=== PATIENT | female | born 1965 | race Caucasian/White ===

== ENCOUNTER 2016-09-01 22:58 | Emergency (ER) | payer OTHER ==
--- NOTE | 2016-09-01 23:08 | EDPHY ---
H & P Stated Complaint: hyperventilating, can't speak Time Seen by Provider: 09/01/16 23:08 HPI/ROS: HPI The patient presents with dizziness which began at about 11:00 p.m. which is a feeling of lightheadedness. Her symptoms came on slowly and got progressively worse over the course of minutes. She said her whole face felt numb, it was difficult to speak and hard to move her entire body. She was feeling quite anxious. According to her who was with her he said she seemed agitated and was hyperventilating, her whole body was tense. Her symptoms lasted for about 30 minutes and then resolved on their own. In triage she was noted to be hyperventilating. Earlier in the day, her son was making marijuana edibles on a tray that she may cookies on. She ate cookies at approximately 10:00 p.m. she has been stressed over the last 2 days with some work related stressors . REVIEW OF SYSTEMS Constitutional: No fever, no chills. Eyes: No discharge. ENT: No sore throat. Cardiovascular: No chest pain, no palpitations. Respiratory: No cough, no shortness of breath. Gastrointestinal: No abdominal pain, no vomiting. Genitourinary: No hematuria. Musculoskeletal: No back pain. Skin: No rashes. Neurological: No headache. PMHx: Healthy, no diabetes, no hypertension Soc Hx: 2 classes of wine tonight PHYSICAL General Appearance: Alert, no distress Eyes: Pupils equal and round no pallor or injection ENT, Mouth: Mucous membranes moist Respiratory: There are no retractions, lungs are clear to auscultation Cardiovascular: Regular rate and rhythm Gastrointestinal: Abdomen is soft and non-tender, no masses, bowel sounds normal Neurological: Alert and oriented x3, cranial nerves 2-12 intact, 5/5 strength in upper and lower extremities which is symmetric, normal finger to nose and heel to lovell testing, normal gait, speech is fluid, normal recall Skin: Warm and dry, no rashes Musculoskeletal: Neck is supple non tender Extremities: symmetrical, full range of motion Psychiatric: Patient is oriented X 3, there is no agitation Source: Patient, Family Exam Limitations: No limitations - Personal History LMP (Females 10-55): Post Menopausal Current Tetanus/Diphtheria Vaccine: Yes Current Tetanus Diphtheria and Acellular Pertussis (TDAP): Yes - Medical/Surgical History Hx Asthma: No Hx Chronic Respiratory Disease: No Hx Diabetes: No Hx Cardiac Disease: No Hx Renal Disease: No Hx Alcoholism: No Other PMH: denies - Social History Smoking Status: Never smoked Constitutional: Initial Vital Signs Heart Rate 113 H 09/01/16 23:00 Respiratory Rate 60 H 09/01/16 23:00 Blood Pressure 117/96 H 09/01/16 23:00 O2 Sat (%) 96 09/01/16 23:00 O2 Delivery Mode Room Air Allergies/Adverse Reactions: ciprofloxacin Allergy (Verified 09/01/16 23:00) Home Medications: Medication Instructions Recorded NK [No Known Home Meds] 09/01/16 Medical Decision Making - Diagnostics EKG Interpretation: EKG: Complete interpretation has been separately recorded in the [facility] archive. Summary impression: Normal sinus rhythm Differential Diagnosis: This is a healthy 51-year-old female who presents with acute onset of dizziness associated with facial numbness hyperventilation, difficulty speaking, tensing of her muscles, witnessed by her earlier this evening. This episode lasted for about 30 minutes and resolved on its own. On arrival, she was hyperventilating and uncomfortable appearing. Despite this, NIH stroke score was 0. Her symptoms quickly resolved in the emergency room. She then found out that she was eating cookies from a tray that her son had made marijuana edibles on earlier. She says she is known to be very sensitive to marijuana and does not use it for this reason. Her symptoms are consistent with prior exposures to marijuana. She is feeling a bit more stress in her life. In the emergency room EKG was obtained and was normal. I offered her further testing such as basic labs as well as anxiolysis, however she declines. I reassessed her and her symptoms were improving. She would like to go home. She will be discharged. Differential diagnosis considered includes marijuana intoxication, CVA, TIA, anxiety attack. Departure - Departure Disposition: Home, Routine, Self-Care Clinical Impression: Dizziness Condition: Good Instructions: Dizziness (ED) Additional Instructions: This symptoms you're having tonight do not appear to be caused by a stroke. They could be related to consuming marijuana. Please monitor your symptoms at home and if your feeling worse in any way you can return to the emergency room for recheck. Otherwise please follow-up with your doctor in the next few days. Referrals: MD SOLOMON [Other] - As per Instructions
[2016-09-01 23:23] VITALS: PULSE 87; TEMP 97.7
--- NOTE | 2016-09-01 23:43 | CPEKG ---
Heart Rate: 82 RR Interval: 732 P-R Interval: 160 QRSD Interval: 96 QT Interval: 404 QTC Interval: 472 P Haver[place]: 53 QRS Haverford: -5 T Wave [place]: 23 EKG Severity - NORMAL ECG - EKG Impression: SINUS RHYTHM Electronically Signed By: Jing Camargo 02-Sep-2016 07:03:21
[2016-09-02 00:12] VITALS: BP 115/81; RESP 18; O2SAT 95
== END 2016-09-02 00:12 | disposition home or self-care (01) ==
DX: R42 Dizziness and giddiness (principal)

== ENCOUNTER 2018-04-29 10:45 | Observation (INO) | payer OTHER ==
[2018-04-29] MEDS ORDERED: OXYCODONE/APAP 5/325 TAB PO ONE (11:01)
[2018-04-29] MEDS ORDERED: HYDROmorphONE/DILAUDID 2 MG/ML INJ IVP ONE ×3 (11:46→14:04)
--- NOTE | 2018-04-29 12:03 | EDPHY ---
H & P Smoking Status: Never smoked Time Seen by Provider: 04/29/18 10:58 HPI/ROS: CLINICAL IMPRESSION: Closed, displaced, comminuted, foreshortened right distal radial metaphyseal fracture ASSESSMENT/PLAN: 52-year-old female presents to the emergency department with acute right wrist pain after ground level fall earlier today. Patient is neurovascular intact, no open wounds, no proximal joint injury. She is right-hand dominant. X-rays show a closed, comminuted, significantly displaced foreshortened right distal radial metaphyseal fracture. Patient agreed to IV analgesics but refused hematoma block. She informed us that she is [facility]. After lengthy discussions with [facility] and [facility] both between myself and the ED attending, patient ultimately refused to be transferred to [facility] per [facility] recommendation and requests having surgery here. She refused hematoma block and reduction in ER. I spoke with Dr. Nix who agrees to take the patient to the operating room later on this evening. Patient was kept NPO, received a L fluid and preoperative lab work. She also refused a forearm sugar- tong splint. She remains neurovascularly intact on repeat exams. Seen examined by Dr. Prescott as well. Stabilized in the ED prior to transfer to floor and ultimately operating room with Dr. Nix. DIFFERENTIAL DX: Differential includes but not limited to acute fracture, dislocation, ligamentous injury, neurovascular compromise ED PROCEDURES: Procedure: Splint placement. A forearm sugar-tong splint was recommended by ortho but patient refused. ED COURSE: 12:40 p.m.: Case discussed with Dr. Nix who reviewed films. He would recommend surgery for this patient later this evening. She has been NPO since 0930 this morning. Patient advises me that she is [facility]. I spoke with [facility]. He will speak to [facility] to inquire if patient should be transferred. He will call back. 1:00pm: Radiologic images sent to rinku Ambrosio. He will discuss with his ortho attending 1:40 p.m.: Images reviewed with Scotty Ambrosio. He and his attending does not feel the patient require surgical intervention. He reviewed x-rays with his orthopedic attending. He has requested the patient have reduction in our ED and be seen as an outpatient. Discussed with Dr. Prescott who will speak to [facility]. Patient is requesting surgery sooner. She does not wish to leave this hospital. 2:08: Still awaiting [facility] call back for Dr. Prescott. Per Dr. Prescott, patient was placed in forearm sugartong splint and will discuss with Scotty. 2:20: Dr. Prescott discussing with Scotty now. Scotty asking to speak to the patient. They are recommending that she be transferred to [facility] for reduction in the emergency department there. Fajardo spoke with the patient in the room and. Patient has refused transfer to [facility]. She prefers to stay here. Forearm sugar-tong splint placed. Patient admitted to Dr. Nix service with plan for operating room around 1700. 2:50 p.m.. Patient updated on plan. She is refusing splint due to her concern over pain. I did offer additional IV analgesics but she continues to refuse. CHIEF COMPLAINT: Right wrist pain HPI: 52-year-old [id number] female presents to the emergency department with acute right wrist pain after she tripped and fell landing on an outstretched arm. Patient is writhing in pain, reports that she cannot move her hand or fingers because of pain but reports no numbness or loss of sensation PAST MEDICAL HISTORY: GERD Pertinent Past Surgical History: None reported Social History: Nonsmoker, NPO since 01/29 this morning. REVIEW OF SYSTEMS: All other systems negative Constitutional: No fever, no chills Musculoskeletal: No deformity, + joint pain Skin: No rashes, color change or open wounds. Neurological: No sensory loss or weakness. PHYSICAL EXAM: General Appearance: Alert, oriented, appropriate for age, cooperative, NAD, well hydrated, non-toxic appearing, VSS, no hypoxia. Neurological: Alert and oriented x 3, normal sensation and strength of extremities Skin: Warm, dry, no rashes, no nodules on palpation. Musculoskeletal: Obvious deformity to right wrist. Closed, no open laceration. Strong radial pulse. Unable to move thumb and fingers due to pain. No palpable forearm or elbow pain. Unable to assess range of motion of the wrist. MEDICAL DECISION MAKING: Patient was seen independently. Secondary supervising physician at time of evaluation was Dr. Prescott. Diagnosis: Closed right, comminuted, displaced, foreshortened distal radius fracture . New, requires workup Summary: See assessment and plan for summary of ED visit Independent visualization of images, tracing, or specimens yes. Decision to obtain medical records or history from someone other than the patient: Patient's Review / Summarize previous medical records: None available Discussed patient with another provider: Dr. Prescott, Dr. Nix, Dr. Levy, [facility], Kirt Ambrosio from [facility]. Patient Progress: Stable . (Zach Dickson) Constitutional: Initial Vital Signs Temperature (C) 36.3 C 04/29/18 10:54 Heart Rate 79 04/29/18 10:54 Respiratory Rate 18 04/29/18 10:54 Blood Pressure 119/89 H 04/29/18 10:54 O2 Sat (%) 95 04/29/18 10:54 O2 Delivery Mode Nasal Cannula O2 (L/minute) 2 Allergies/Adverse Reactions: ciprofloxacin Allergy (Verified 04/29/18 10:54) Home Medications: Medication Instructions Recorded Ranitidine HCl 04/29/18 MDM/Departure - MDM Imaging Results: Imaging Impressions Wrist X-Ray 04/29/18 10:53 Impression: Comminuted, displaced, angulated and foreshortened fracture of the distal radial metaphysis. There is also an ulnar styloid fracture. Medications Given: Discontinued Medications Hydromorphone HCl (Dilaudid) 0.5 mg IVP EDNOW ONE Stop: 04/29/18 11:47 Last Admin: 04/29/18 12:07 Dose: 0.5 mg Hydromorphone HCl (Dilaudid) 0.5 mg IVP EDNOW ONE Stop: 04/29/18 12:39 Last Admin: 04/29/18 13:00 Dose: 0.5 mg Hydromorphone HCl (Dilaudid) 0.5 mg IVP EDNOW ONE Stop: 04/29/18 14:05 Last Admin: 04/29/18 14:10 Dose: 0.5 mg Sodium Chloride (Ns) 1,000 mls @ 0 mls/hr IV EDNOW ONE; Wide Open PRN Reason: Protocol Stop: 04/29/18 15:12 Last Admin: 04/29/18 15:13 Dose: 1,000 mls Ondansetron HCl (Zofran) 4 mg IVP EDNOW ONE Stop: 04/29/18 12:39 Last Admin: 04/29/18 12:54 Dose: 4 mg Ondansetron HCl (Zofran) 4 mg IVP EDNOW ONE Stop: 04/29/18 14:55 Last Admin: 04/29/18 14:56 Dose: 4 mg Oxycodone/Acetaminophen (Percocet 5/325) 2 tab PO EDNOW ONE Stop: 04/29/18 11:02 Last Admin: 04/29/18 11:03 Dose: 2 tab ED Course/Re-evaluation: I evaluated this patient. She has an acute distal radius fracture with significant displacement. Patient has refused hematoma block and Dr. Nix feels that the patient requires definitive management in the OR and plans to take her in a couple hours. [facility] was contacted as this is her primary insurance, and they essentially disagreed with this plan, requesting that we instead reduce the fracture under conscious sedation here and refer her to them for surgery. I explained that the patient does not want to undergo this plan, and that our specialist does not feel this is best. Ultimately, the [facility] doc spoke to the patient directly and offered to transfer the patient to [facility] ED for reduction under conscious sedation, but she declined. They discussed with her the fact that this option may result in additional cost to her. (Arthur Prescott) - Depart Condition: Good
[2018-04-29] MEDS ORDERED: ONDANSETRON 4 MG/2 ML VIAL IVP ONE ×2 (12:38→14:54)
[2018-04-29] MEDS ORDERED: ONDANSETRON 4 MG/2 ML VIAL ONE ×2 (14:53→17:42)
[2018-04-29 15:09] LABS: PLATELET COUNT 235 10^3/uL (150-400)
[2018-04-29] MEDS ORDERED: NS 1,000 ML IV ONE (15:11)
[2018-04-29] MEDS ORDERED: BUPIVACAINE 0.5% 30 ML SDV ONE (16:40)
--- NOTE | 2018-04-29 17:00 | GHP ---
DATE OF ADMISSION: 04/29/2018 CHIEF COMPLAINT: Right wrist pain. HISTORY OF PRESENT ILLNESS: Patient is a 52-year-old, wjmzy-odyi-hrfgtyjk woman who sustained a fall landing on her right outstretched arm. She noted immediate pain and deformity. She denies any prev ious problems or injuries relative to her right wrist. PAST MEDICAL HISTORY: Unremarkable. She takes no medicines and lists allergy to ciprofloxacin. SOCIAL HISTORY: Negative for tobacco use. PHYSICAL EXAMINATION: GENERAL: She is alert and oriented x3, in moderate distress secondary to her right wrist pain. HEENT: Head is normocephalic. Pupils equal, round, reactive to light. Extraocul ar eye movements intact. NECK: Supple. No JVD, lymphadenopathy. CHEST: Clear to auscultation. H EART: Regular rate and rhythm. No murmurs or gallops. ABDOMEN: Soft, nontender, nondistended. GE NITAL, RECTAL, AND BREAST: Deferred. EXTREMITIES: Exam reveals swelling in the right wrist with an apex volar deformity. Her distal neurovascular exam is grossly intact. There is no sign of compart ment syndrome (traumatic carpal tunnel). IMAGING: AP and lateral radiographs of the wrist show evidence of a dorsally displaced apex volar an gulated distal radius fracture with possible intra-articular extension. ASSESSMENT: Right distal radius fracture. PLAN: Based on the nature of her injury, it was recommended that operative treatment consisting of o pen reduction, internal fixation be pursued. /[id number]/MODL
[2018-04-29] MEDS ORDERED: CEFAZOLIN 2 GM/DEXTROSE/100 ML BAG IV ONE (17:15)
[2018-04-29] MEDS ORDERED: MIDAZOLAM 2 MG/2 ML VIAL ONE (17:29)
[2018-04-29] MEDS ORDERED: ceFAZolin 2 GM/DEXTROSE 100 ML IV ONE (17:30)
[2018-04-29] MEDS ORDERED: fentaNYL 100 MCG/2 ML INJ ONE (17:31)
[2018-04-29] MEDS ORDERED: PROPOFOL 200 MG/20 ML VIAL ONE (17:32)
[2018-04-29] MEDS ORDERED: LIDOCAINE 2% 5 ML SDV ONE (17:32)
[2018-04-29] MEDS ORDERED: DEXAMETHASONE 4 MG/ML VIAL ONE (17:42)
[2018-04-29] MEDS ORDERED: RANITIDINE 50 MG/2 ML VIAL ONE (17:42)
[2018-04-29] MEDS ORDERED: PROMETHAZINE HCL 25 MG/ML INJ IVP PRN ×2 (17:57→21:03)
[2018-04-29] MEDS ORDERED: oxyCODONE IR 5 MG TAB PO PRN (17:57)
[2018-04-29] MEDS ORDERED: ONDANSETRON 4 MG/2 ML VIAL IVP PRN ×2 (17:57→21:03)
[2018-04-29] MEDS ORDERED: NALOXONE HCL 0.4 MG/ML INJ IVP PRN (17:57)
[2018-04-29] MEDS ORDERED: MIDAZOLAM 2 MG/2 ML VIAL IVP ONE (17:57)
[2018-04-29] MEDS ORDERED: fentaNYL 100 MCG/2 ML INJ IVP PRN (17:57)
[2018-04-29] MEDS ORDERED: ALBUTEROL 3 ML DEYVIAL IH PRN (17:57)
--- NOTE | 2018-04-29 17:59 | PDANEPAE ---
ANE History of Present Illness R Radius ORIF ANE Past Medical History - Cardiovascular History Hx Hypertension: No Hx Arrhythmias: No - Pulmonary History Hx COPD: No Hx Asthma/Reactive Airway Disease: No Hx Oxygen in Use at Home: No Hx Sleep Apnea: No - Endocrine History Hx Diabetes: No ANE Review of Systems Review of Systems: ANE Patient History - Allergies Allergies/Adverse Reactions: ciprofloxacin Allergy (Verified 04/29/18 10:54) - Home Medications Home Medications: Multivitamins [Multivitamin (*)] 1 each PO DAILY 04/29/18 [Last Taken 04/29/18] Ranitidine HCl [Zantac] 150 mg PO DAILY 04/29/18 [Last Taken 04/29/18] guaiFENesin [Mucinex 600 MG (*)] 600 mg PO BID PRN 04/29/18 [Last Taken Unknown] - NPO status NPO Since - Liquids (Date): 04/29/18 NPO Since - Liquids (Time): 11:00 NPO Since - Solids (Date): 04/28/18 NPO Since - Solids (Time): 19:00 - Smoking Hx Smoking Status: Never smoked ANE Labs/Vital Signs - Labs Result Diagrams: 04/29/18 14:50 04/29/18 14:50 - Vital Signs Blood Pressure: 98/60 Heart Rate: 62 Respiratory Rate: 16 O2 Sat (%): 99 Height: 167.64 cm Weight: 65.771 kg ANE Physical Exam - Airway Neck exam: FROM Mallampati Score: Class 2 Mouth exam: normal dental/mouth exam - Pulmonary Pulmonary: clear to auscultation - Cardiovascular Cardiovascular: regular rate and rhythym - ASA Status ASA Status: II ANE Anesthesia Plan Anesthesia Plan: GA w LMA
--- NOTE | 2018-04-29 18:43 | POSTANESTH ---
Post Anesthetic Evaluation Cardiovascular Status: Normal, Stable Respiratory Status: Normal, Stable Level of Consciousness/Mental Status: Mildly Sleepy, Arousable Pain Control: Adequate, Prn Tx Ordered Nausea/Vomiting Control: Adequate, Prn Tx Ordered Complications Possibly Related to Anesthesia: None Noted
--- NOTE | 2018-04-29 18:46 | POSTOPPROG ---
Post Op Note Date of Operation: 04/29/18 Surgeon: Chris Nix Anesthesia: LMA Pre-op Diagnosis: R Distal radius fx Post-op Diagnosis: same Procedure: ORIF R dist radius fx Inf/Abcess present in the surg proc area at time of surgery?: No EBL: Minimal
[2018-04-29] MEDS ORDERED: guaiFENesin 600 MG TAB.ER PO PRN (18:52)
[2018-04-29] MEDS ORDERED: D5W 1/2 NS W/ 20 KCl/L 1,000 ML IV SCH (19:00)
[2018-04-29] MEDS ORDERED: HYDROmorphONE/DILAUDID 2 MG/ML INJ ONE (19:05)
[2018-04-29] MEDS: HYDROmorphONE/DILAUDID 2 MG/ML INJ IVP PRN ×2 (19:06→19:30)
--- NOTE | 2018-04-29 19:51 | GOP ---
DATE OF OPERATION: 04/29/2018 SURGEON: Chris Nix MD ANESTHESIA: General. PREOPERATIVE DIAGNOSIS: Right distal radius fracture (comminuted extra-articular). POSTOPERATIVE DIAGNOSIS: Right distal radius fracture (comminuted extra-articular). PROCEDURE PERFORMED: 1. Open reduction, internal fixation, right distal radius fracture. 2. Intraoperative use of fluoroscopy. FINDINGS: ESTIMATED BLOOD LOSS: Minimal.elective DESCRIPTION OF PROCEDURE: The patient brought in the operating after IV antibiotics were administere d. She was placed in a supine position where general anesthetic was administered. A closed reductio n maneuver was performed and fluoroscopic views were obtained. While marked improvement in the reduc tion was obtained, based on the dorsal comminution, volar tilt was not fully corrected with a persist ent dorsal tilt of the distal segment. Based on this, definitive operative management consisting of open reduction, internal fixation was carried through. Without this maintenance, obtaining and maint aining an adequate reduction would not have been possible. The right upper extremity was prepped and draped in standard sterile fashion after placing of a tourniquet on the right upper arm. After carlos ing the incision and Brett wrap exsanguination, the tourniquet was inflated to 250. A volar approach to the distal radius was utilized for exposure. Skin and subcutaneous tissue were s harply incised. Sharp dissection was carried through the flexor retinaculum adjacent to the flexor c arpi radialis. The radial nerve was protected. Dissection was carried through the pronator muscle d own to the volar aspect of the distal radius. Limited periosteal reflection and reflection of the di stal segment was performed to allow for favorable reduction and hardware placement. A volar locking distal radius plate (Synthes) was appropriately positioned and provisionally pinned with an olive wirajinder e. Plate placement was confirmed to be favorable fluoroscopically. With mild flexion of the wrist allowing the plate to be in contact with the distal segment, distal fi xation was accomplished with multiple 2.4 mm locking screws with the plate flush up against the volar aspect of the distal radius. Prior to proximal fixation, confirmation of appropriate radial and uln ar translation was accomplished. A 2.7 mm bicortical screw was placed in the oblique proximal hole. Distraction was accomplished utilizing a Hohmann retractor gaining full length of the distal segment . The 2.7 mm screw was then tightened. A supplemental 2.4 mm cortical locking screw was placed in t he most proximal hole in the plate. Fluoroscopic views confirmed favorable reduction with restoratio n of radial inclination, volar tilt, radial and ulnar translation, and length. Favorable hardware pl acement was confirmed. Attention was directed toward closure. The flexor retinaculum was closed with 2-0 Vicryl suture in i nterrupted fashion. The tourniquet was deflated with no untoward bleeding seen. Subcutaneous tissue was closed with 3-0 Vicryl suture in interrupted fashion. The skin was closed with 4-0 nylon interr upted sutures. 0.5% Marcaine without epinephrine was injected in the wound site. The wounds were tarah ssed with sterile Adaptic, 4 x 4, Webril, and a volar splint was applied. The patient tolerated the procedure well and was taken to the recovery room, extubated in stable condition postoperatively. Al l sponge, needle, and instrument counts were reported as being correct. DRAINS: None. COMPLICATIONS: None. PLAN: The patient will be either discharged home or admitted for observation based on her pain statu s. She will be nonweightbearing on her operative extremity. /[id number]/MODL
[2018-04-29] MEDS: HYDROCODONE/APAP 5/325 TAB PO PRN (23:59)
[2018-04-30] MEDS: HYDROCODONE/APAP 5/325 TAB PO PRN ×2 (01:03→07:21)
[2018-04-30] MEDS: oxyCODONE IR 5 MG TAB PO PRN ×3 (03:17→11:50)
[2018-04-30 07:59] VITALS: BP 101/63
[2018-04-30] MEDS ORDERED: FAMOTIDINE 20 MG TAB PO SCH (09:00)
[2018-04-30] MEDS ORDERED: MULTIVITAMINS 1 EACH TAB PO SCH (09:00)
--- NOTE | 2018-04-30 09:08 | ASMTLACE ---
CHIDIE Length of stay for Answers: 1 day current admission Acuity / Level of Answers: Yes Care: Did the patient have an inpatient admission? # of Emergency department Answers: 1-2 visits in the last 6 months Score: 5 Date Signed: 04/30/2018 09:08 AM Electronically Signed By:Madelyn Hernandez RN
--- NOTE | 2018-04-30 09:14 | ASMTCMCOM ---
CM Note CM Note Notes: Chart reviewed. 52 year old female s/p fall and right distal radius fracture. Medically cleared for discharge to home. No needs identified. CM available should needs arise. Plan: Dc to home independently. Date Signed: 04/30/2018 09:13 AM Electronically Signed By:Madelyn Hernandez RN
--- NOTE | 2018-04-30 12:51 | SOAPPROG ---
SOAP Progress Note Assessment/Plan: Assessment: S/P ORIF R distal radius fx Anticipated pain John po Able to flex/ex fingers 1-5 Sensation intact Plan: D/C home 04/30/18 12:50 Objective: Vital Signs Temp Pulse Resp BP Pulse Ox 36.7 C 64 16 101/63 97 04/30/18 07:57 04/30/18 07:57 04/30/18 07:57 04/30/18 07:57 04/30/18 07:57 Laboratory Results 04/29/18 14:50 04/29/18 14:50 04/29/18 04/30/18 05/01/18 05:59 05:59 05:59 Intake Total 2260 Output Total 505 Balance 1755 ICD10 Worksheet Patient Problems: Problems Problem Status Onset Laceration of left knee without complication Acute
== END 2018-04-30 12:54 | disposition home or self-care (01) ==
LOC: F3N 20:10
PROVIDERS: ADMIT Orthopaedic Surgery Foot and Ankle Surgery; ATTEND Orthopaedic Surgery Foot and Ankle Surgery
PROC: 0PSH04Z Reposition Right Radius with Internal Fixation Device, Open Approach (ICD-10-PCS; principal; 2018-04-29 17:30)
DX: S52.551A Other extraarticular fracture of lower end of right radius, initial encounter for closed fracture (principal); W01.0XXA Fall on same level from slipping, tripping and stumbling without subsequent striking against object, initial encounter; E86.9 Volume depletion, unspecified; K21.9 Gastro-esophageal reflux disease without esophagitis
CPT/HCPCS: 25607; 73110; 96361; 96374; 96375; 96376; 99285; C1769; G0378; C1713; J0690; J1100; J1170; J2250; J2270; J2405; J2704; J2780; J3010